=== PATIENT | male | born 2005 | race Two or more races ===

== ENCOUNTER → 2024-12-30 | Emergency (ER) | payer BC ==
[~2024-12-30] VITALS: Ht 175.3 cm; Wt 54.4 kg
[~2024-12-30] MED LIST: FAMOTIDINE/PF 20 MG/2 ML VIAL ONE; MORPHINE SULFATE 4 MG/ML VIAL IV STA; ONDANSETRON HCL 2 MG/ML VIAL IV STA; ONDANSETRON HCL 2 MG/ML VIAL ONE; PIPERACILLIN/TAZOBACTAM SODIUM 3.375 GM VIAL IV ONE
[2024-12-30 14:25] LABS: HEMATOCRIT 41.8 % (39.0-48.0); HEMOGLOBIN 14.3 g/dL (13-16.00); MEAN CELL VOLUME 84.5 fL (80.0-100.00); MEAN CORPUSCULAR HGB CONC 34.3 g/dl (32.0-36.0); PLATELET COUNT 244 K/uL (150-450); RED BLOOD COUNT 4.95 M/uL (4.00-6.00); RED CELL DISTRIBUTION WIDTH 12.6 % (11.5-14.5)
[2024-12-30 14:42] LABS: CALCIUM 9.1 mg/dL (8.5-10.1); CREATININE SERUM 1.35 mg/dL (0.70-1.30); GFR 66.71; POTASSIUM 3.95 mEq/L (3.5-5.1)
== END | disposition designated cancer center or children's hospital (05) ==
LOC: ER 13:29
PROVIDERS: General Practice
DX: R11.10 Vomiting, unspecified (principal); K50.90 Crohn's disease, unspecified, without complications; N23 Unspecified renal colic